=== PATIENT | male | born 1965 | race Caucasian/White ===

== ENCOUNTER 2019-12-09 05:47 | Emergency (ER) | payer BC, SELFPAY ==
[2019-12-09 06:00] VITALS: BP 154/79; PULSE 66; RESP 20; TEMP 36.6; O2SAT 97
[2019-12-09] MEDS: LIDOCAINE HCL 1% LOCAL INJ 20 ML VIAL INFILTRATE (06:11)
--- NOTE | 2019-12-09 06:23 | ED.WOUNDLAC ---
HPI - Wound/Laceration General Chief Complaint: Wound/Laceration Stated Complaint: FELL Source: patient Mode of arrival: ambulatory Limitations: no limitations History of Present Illness HPI narrative: this is a 54-year-old gentleman that presents with a laceration to the middle of the foot of his forehead that occurred earlier this morning when he hit his head on the bathtub causing a 3cm mildly gaping laceration to the middle of his forehead. There was some mild loss of blood with no current bleeding no headaches no blurry vision no loss of consciousness. Onset (ago): hour(s) Location: scalp Place: home Patient tetanus UTD: Yes Context: accidental Associated symptoms: none Related Data Home Medications Medication Instructions Recorded Confirmed amlodipine 10 mg PO DAILY 12/09/19 12/09/19 hydrocodone-acetaminophen 1 tablet PO PRN PRN 12/09/19 12/09/19 ketorolac 10 mg PO PRN PRN 12/09/19 12/09/19 losartan 50 mg PO DAILY 12/09/19 12/09/19 lovastatin 40 mg PO DAILY 12/09/19 12/09/19 montelukast 10 mg PO DAILY 12/09/19 12/09/19 testosterone cypionate 200 mg IM WEEKLY 12/09/19 12/09/19 Allergies Allergy/AdvReac Type Severity Reaction Status Date / Time No Known Drug Allergies Allergy Unknown Verified 08/11/11 08:32 Review of Systems Review of Systems: All systems reviewed & are unremarkable except as noted in HPI and below PMFSH Past Medical History Medical History HLD (hyperlipidemia) HTN (hypertension) Exam Const: General: no acute distress and alert Orientation/consciousness: patient oriented x3 HENMT: Head: normal to inspection, contusion and hematoma Eyes: Conjunctivae: conjunctivae normal Pupils: Equal, round and reactive pupils present Neck: Neck: no lymphadenopathy Chest: Chest palpation & inspection: normal inspection of the chest Resp: Effort & Inspection: normal respiratory effort Auscultation: clear to auscultation bilaterally Cardio: Rate: regular rate Rhythm: regular rhythm GI: GI Palp: Yes Soft to palpation Skin: Wounds: wounds noted ( 3Cm linear blood located in the middle of his forehead mildly gaping) Neuro: General: patient oriented x3, moves all extremities, no meningeal signs and no focal motor deficits Extrem: General: normal to inspection Course Vital Signs Vital signs: Vital Signs Temperature 36.6 C 12/09/19 06:00 Pulse Rate 66 12/09/19 06:00 Respiratory Rate 20 12/09/19 06:00 Blood Pressure 154/79 H 12/09/19 06:00 Pulse Oximetry 97 12/09/19 06:00 Temperature 36.6 C 12/09/19 06:00 Pulse Rate 66 12/09/19 06:00 Respiratory Rate 20 12/09/19 06:00 Blood Pressure 154/79 H 12/09/19 06:00 Pulse Oximetry 97 12/09/19 06:00 Procedures Laceration Laceration 1: Date: 12/09/19 Time: 06:27 Site: scalp Size (cm): 3 Description: linear Depth: simple, single layer Local Anesthetic: lidocaine 1% Amount of anesthesia used (mL): 5 Pre-repair: wound explored and irrigated ====== Skin Level ====== Skin layer closed with: nylon Size (cm): 5-0 Number of sutures: 6 ====== Subcutaneous Layer ====== ====== Muscle Layer ====== ====== Tendon Layer ====== Critical Care Time Critical Care Time Critical Care Time: No Discharge Plan Discharge Clinical Impression: Laceration Patient Disposition: Home, Self-Care Condition: Stable Instructions: Antibiotic Form, Laceration (ED), Care For Your Stitches (ED) Additional Instructions: advised patient to follow-up primary care physician in 1 week for suture removal. Prescriptions: No Action losartan 50 mg tablet 50 mg PO DAILY RF: 0 lovastatin 40 mg tablet 40 mg PO DAILY RF: 0 hydrocodone-acetaminophen 10-325 mg tablet 1 tablet PO PRN PRN (Reason: Pain) RF: 0 ketorolac 10 mg tablet 10 mg PO PRN PRN (
[2019-12-09 06:29] VITALS: BP 129/70; PULSE 70; RESP 20; TEMP 36.6; O2SAT 99
== END 2019-12-09 06:32 | disposition home or self-care (01) ==
PROVIDERS: Emergency Provider Emergency Medicine; PCP Internal Medicine
DX: S01.81XA Laceration without foreign body of other part of head, initial encounter (principal); W45.8XXA Other foreign body or object entering through skin, initial encounter
CPT/HCPCS: 12013 ×2; 12002; 99282

== ENCOUNTER 2019-12-15 16:10 | Outpatient (CLI) | payer BC, SELFPAY ==
--- NOTE | ~2019-12-15 | XR_ITS ---
EXAMINATION: XR lumbar spine 2-3V EXAM DATE: 12/15/2019 16:31 INDICATION: Low back pain into right leg, symptoms one month. TECHNIQUE: Lumber spine frontal, lateral, lateral L5-S1 projections for interpretation. There is no prior study for comparison. FINDINGS: There is mild lumbar disc disease. The vertebral bodies are aligned in the AP dimension. M ild lumbar levoscoliosis. There is mild to moderate lumbar facet arthropathy. Sacrum, sacroiliac join ts, sacral arcuate lines are intact. Paraspinal soft tissue is unremarkable. IMPRESSION: Mild to moderate lumbar facet arthropathy. Reviewed, dictated and finalized at location A.
== END 2019-12-15 16:11 | disposition home or self-care (01) ==
LOC: CHSIMG 16:11
PROVIDERS: PCP Internal Medicine; Visit Provider Internal Medicine
DX: M54.5 Low back pain (principal)
CPT/HCPCS: 72100

== ENCOUNTER 2020-01-10 07:38 | Outpatient (CLI) | payer BC, SELFPAY ==
--- NOTE | ~2020-01-10 | MR_ITS ---
EXAMINATION: MR lumbar spine wo [facility] EXAM DATE: 01/10/2020 08:21 INDICATION: Low back pain, right leg/ankle pain. Right toe numbness, symptoms 3 months. TECHNIQUE: Multi-sequential, multiplanar MR images of the lumbar spine were obtained without contrast . Sagittal T1, T2, T2 fat saturation images. Axial T2 weighted images. There is no prior study for comparison. FINDINGS: The conus medullaris terminates at the T12-L1 level and has normal signal intensity and mor phology. There is 3 mm retrolisthesis L5 on S1 with mild to moderate disc disease at this level. Mil d disc disease at L3-4 and L4-5. There are no suspicious marrow signal abnormalities. Paraspinal soft tissue is unremarkable. Level by level evaluation: T12-L1: Disc does not extend beyond the endplate margin. Facet arthropathy: None. Neural foraminal stenosis: No stenosis. Central canal stenosis: No stenosis. L1-L2: Disc does not extend beyond the endplate margin. Facet arthropathy: None. Neural foraminal stenosis: No stenosis. Central canal stenosis: No stenosis. L2-L3: Disc does not extend beyond the endplate margin. Facet arthropathy: Mild. Neural foraminal stenosis: No stenosis. Central canal stenosis: No stenosis. L3-L4: There is a mild diffuse disc bulge. Facet arthropathy: Mild to moderate. Neural foraminal stenosis: Mild right. Central canal stenosis: Mild. L4-L5: There is a mild to moderate diffuse disc bulge. Facet arthropathy: Moderate. Neural foraminal stenosis: Mild to moderate left, mild right. Central canal stenosis: Mild to moderate. L5-S1: There is a mild to moderate diffuse disc bulge. Facet arthropathy: Mild. Neural foraminal stenosis: Mild to moderate bilateral. Central canal stenosis: Mild. IMPRESSION: 1. [id number] lumbar spondylosis as detailed above. Reviewed, dictated and finalized at location A. IMPRESSION: 1. [id number] lumbar spondylosis as detailed above.
== END 2020-01-10 07:39 | disposition home or self-care (01) ==
LOC: ANHIMG 07:43
PROVIDERS: PCP Internal Medicine; Visit Provider Internal Medicine
DX: M47.816 Spondylosis without myelopathy or radiculopathy, lumbar region (principal)
CPT/HCPCS: 72148

== ENCOUNTER 2020-02-24 15:31 | Emergency (ER) | payer BC, SELFPAY ==
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
[2020-02-24 15:35] VITALS: BP 154/93; PULSE 80; RESP 14; TEMP 37; O2SAT 95
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
[2020-02-24 16:15] VITALS: RESP 15; O2SAT 95
== END 2020-02-24 16:24 | disposition home or self-care (01) ==
PROVIDERS: Emergency Provider Emergency Medicine; PCP Internal Medicine
DX: S62.112A Displaced fracture of triquetrum [cuneiform] bone, left wrist, initial encounter for closed fracture (principal); V29.9XXA Motorcycle rider (driver) (passenger) injured in unspecified traffic accident, initial encounter
CPT/HCPCS: 29125; 73110; 99282; 99284; L3908

== ENCOUNTER 2020-08-02 09:03 | Outpatient (CLI) | payer BC, SELFPAY ==
[2020-08-02 10:04] LABS: SARS-CoV-2 Ag Negative (Negative)
== END 2020-08-02 09:04 | disposition home or self-care (01) ==
LOC: CHSLAB 09:04
PROVIDERS: PCP Internal Medicine; Visit Provider Internal Medicine
DX: Z20.828 Contact with and (suspected) exposure to other viral communicable diseases (principal)
CPT/HCPCS: 87426

== ENCOUNTER 2020-08-04 10:57 | Outpatient (CLI) | payer BC, SELFPAY ==
[2020-08-04 11:51] LABS: SARS-CoV-2 Ag Positive (Negative)
== END 2020-08-04 10:58 | disposition home or self-care (01) ==
LOC: CHSLAB 10:58
PROVIDERS: PCP Internal Medicine; Visit Provider Internal Medicine
DX: U07.1 COVID-19 (principal)
CPT/HCPCS: 87426

== ENCOUNTER 2020-08-09 11:52 | Emergency (ER) | payer BC, SELFPAY ==
--- NOTE | ~2020-08-09 | XR_ITS ---
EXAMINATION: XR chest 1V portable EXAM DATE: 08/09/2020 12:32 INDICATION: sob, + covid, persistent fever. TECHNIQUE: Portable AP frontal chest x-ray was obtained. Comparison is made to prior examination from 09/22/2016. FINDINGS: The lungs are clear. There are no pleural effusions. Cardiac silhouette is prominent but magnified on this AP technique. There is no pneumothorax suspected. The bones and soft tissues are unremarkable. IMPRESSION: No acute cardiopulmonary findings. Reviewed, dictated and finalized at location B. 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
--- NOTE | 2020-08-09 12:14 | ED.FEVER ---
HPI - Fever General Chief Complaint: Shortness of Breath/Dyspnea Stated Complaint: Covid + Doctor sent over Time Seen by Provider: 08/09/20 11:54 Source: patient Mode of arrival: ambulatory Limitations: no limitations History of Present Illness HPI Narrative: 54-year-old man has history of hypertension and dyslipidemia comes in today complaining of shortness of breath and cough. Patient states that he was diagnosed with COVID on the . He states he has headache, poor appetite, shortness of breath and fatigue. He denies chest pain, vomiting, diarrhea, rash, weakness, lightheadedness, syncope and productive cough. He states his family is positive. MD elicited complaint: malaise Onset (ago): day(s) (4) Context: sick contacts Exacerbating factors: nothing Relieving factors: nothing Associated symptoms: headache, nasal congestion, cough and shortness of breath Treatments prior to arrival fever: none Related Data Home Medications Medication Instructions Recorded Confirmed amlodipine 10 mg PO DAILY 12/09/19 08/09/20 losartan 50 mg PO DAILY 12/09/19 08/09/20 lovastatin 40 mg PO DAILY 12/09/19 08/09/20 montelukast 10 mg PO DAILY 12/09/19 08/09/20 testosterone cypionate 200 mg IM WEEKLY 12/09/19 08/09/20 hydrochlorothiazide 12.5 mg PO DAILY 02/24/20 08/09/20 sildenafil 100 mg PO PRN PRN 02/24/20 08/09/20 Allergies Allergy/AdvReac Type Severity Reaction Status Date / Time No Known Drug Allergies Allergy Unknown Unknown Verified 08/09/20 12:34 Review of Systems Constitutional: Constitutional: Denies chills, Reports fatigue and Denies fever(s) Eyes: Eyes: Denies change in vision and Denies photophobia ENT: Denies dysphagia, Reports nasal congestion and Denies sore throat Cardiovascular: Cardiovascular: Denies chest pain Respiratory: Respiratory: Reports as per HPI, Reports cough, Reports dyspnea and Denies wheezing Gastrointestinal: Gastrointestinal: Denies abdominal pain, Denies diarrhea, Denies nausea and Denies vomiting Musculoskeletal: Musculoskeletal: Denies myalgias, Denies arthralgias and Denies joint swelling Integumentary/Breasts: Skin/Breast: Denies pruritus, Denies erythema and Denies rash Neurologic: Denies vertigo, Denies dizziness and Denies syncope Hematologic/Lymphatic: Hematologic/Lymphatic: Denies easy bleeding and Denies easy bruising Allergic/Immunologic: Allergic/Immunologic: Denies lip swelling, Denies throat swelling and Denies tongue swelling [facility] Past Medical History Medical History (Updated 08/09/20 @ 13:15 by Kike Rodrigez MD) HLD (hyperlipidemia) HTN (hypertension) Social History Social History Smoking status: Never smoker Gender identity (if verbalized by the patient): Male Exam Const: General: no acute distress and alert Nutritional Appearance: obese Orientation/consciousness: patient oriented x3 Limitations: no limitations HENMT: Head: normal to inspection Ears: external ears normal, TM's normal bilaterally and EAC's normal General nose exam: Normal nares present Face and sinus: normal facial exam Mouth: Yes moist mucous membranes Throat: posterior oropharynx normal Eyes: Conjunctivae: conjunctivae normal EOM: EOMs intact bilaterally Resp: Effort & Inspection: normal respiratory effort and not labored Auscultation: clear to auscultation bilaterally, no rales, no rhonchi, no wheezes and diminished lung sounds (mildy, diffusely) Cardio: Rate: regular rate Rhythm: regular rhythm Peripheral pulses: radial pulses present Skin: General skin exam: normal color, no jaundice and no pallor Rashes: no rashes Neuro: General: No patient oriented x3, No moves all extremities, No no meningeal signs, No no focal motor deficits and No CN's II-XI intact bilaterally Speech: No normal speech Gait exam (Neuro): gait abnormal Extrem: General: normal to inspection and no clubbing, cyanosis or edema Psych: Appea
[2020-08-09 12:28] VITALS: BP 151/86; PULSE 103; RESP 20; TEMP 38.6; O2SAT 96
[2020-08-09 12:53] LABS: Influenza Control Valid (Valid)
[2020-08-09 13:51] VITALS: BP 123/75; PULSE 96; RESP 20; O2SAT 100
== END 2020-08-09 13:53 | disposition home or self-care (01) ==
PROVIDERS: Emergency Provider Emergency Medicine; PCP Internal Medicine
DX: U07.1 COVID-19 (principal)
CPT/HCPCS: 71045; 87804; 99283

== ENCOUNTER 2020-08-10 09:33 | Outpatient (CLI) | payer BC, SELFPAY ==
[2020-08-10 09:57] LABS: Basophils Absolute Auto 0.02 K/mm3 (0.00-0.10); Basophils Percent Auto 0.4 % (0.0-1.0); Eosinophils Absolute Auto 0.01 K/mm3 (0.02-0.50); Eosinophils Percent Auto 0.2 % (1.0-6.0); Hematocrit 53.3 % (40.0-54.0); Hemoglobin 17.1 g/dL (14.0-18.0); Immature Granulocyte Absolute 0.04 K/mm3 (0.00-0.00); Immature Granulocyte Percent A 0.7 % (0.0-0.0); Lymphocytes Absolute Auto 0.68 K/mm3 (1.10-4.50); Lymphocytes Percent Auto 12.1 % (18.0-42.0); Mean Corpuscular HGB Conc 32.1 g/dL (32.0-36.0); Mean Corpuscular Hemoglobin 27.5 pg (27.0-31.0); Mean Corpuscular Volume 85.8 fL (78.0-102.0); Mean Platelet Volume 9.7 fl (8.7-11.0); Monocytes Absolute Auto 0.74 K/mm3 (0.10-0.90); Monocytes Percent Auto 13.2 % (2.0-11.0); Neutrophils Absolute Auto 4.1 K/mm3 (1.7-7.2); Neutrophils Percent Auto 73.4 % (50.0-70.0); Platelet Count Result 227 K/mm3 (150-420); Red Blood Count 6.21 M/mm3 (4.70-6.10); Red Cell Distribution Width 14.3 % (11.6-14.4); White Blood Count 5.6 K/mm3 (4.8-10.8)
[2020-08-10 10:06] LABS: Anion Gap 9 mmol/L (8-16); Blood Urea Nitrogen 17 mg/dL (7-18); Calcium 8.8 mg/dL (8.5-10.1); Carbon Dioxide 29 mmol/L (21-32); Chloride 98 mmol/L (98-108); Estimated Glomerular Filt Rate 52; Glucose 115 mg/dL (70-99); Osmolality Calculated 284 mOsm/kg (285-295); Potassium 3.5 mmol/L (3.5-5.1); Sodium 136 mmol/L (136-145)
[2020-08-10 10:08] LABS: D Dimer 0.31 mg/L (0.19-0.50)
== END 2020-08-10 09:34 | disposition home or self-care (01) ==
LOC: CHSLAB 09:35
PROVIDERS: PCP Internal Medicine; Visit Provider Internal Medicine
DX: U07.1 COVID-19 (principal); R06.02 Shortness of breath
CPT/HCPCS: 36415; 80048; 85025; 85380

== ENCOUNTER 2020-09-21 15:32 | Outpatient (CLI) | payer BC, SELFPAY ==
[2020-09-21 16:40] LABS: Hematocrit 49.2 % (42.0-52.0); Hemoglobin 16.5 g/dL (14.0-18.0)
[2020-09-21 17:22] LABS: Prostate Specific Antigen 1.6 ng/mL (< OR = 4.0)
[2020-09-25 10:17] LABS: Testosterone Total 873 ng/dL (250-1100)
[2020-09-27 00:21] LABS: Estradiol, Ultrasensitive 90 pg/mL (< OR = 29)
== END 2020-09-21 15:33 | disposition home or self-care (01) ==
PROVIDERS: PCP Internal Medicine; Visit Provider Urology
DX: E29.1 Testicular hypofunction (principal); D75.1 Secondary polycythemia; Z12.5 Encounter for screening for malignant neoplasm of prostate
CPT/HCPCS: 36415; 82670; 84153; 84403; 85014; 85018; G0103

== ENCOUNTER 2020-10-13 18:02 | Outpatient (CLI) | payer BC, SELFPAY ==
--- NOTE | ~2020-10-13 | XR_ITS ---
EXAMINATION: XR chest 2V DATE: 10/13/2020 18:17 INDICATION: Cough. TECHNIQUE: Frontal and lateral views of the chest were obtained. COMPARISON: Chest single view 08/09/2020 FINDINGS: A calcified right lung nodule is consistent with old granulomatous disease. There are mild airspace opacities in right lower lung zone. No pleural effusion or pneumothorax. The heart size is n ormal. IMPRESSION: 1. Mild airspace opacities in right lower lung zone, consistent with atelectasis versus pneumonia. Reviewed, dictated and finalized at location A. 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 Mild airspace opacities in right lower lung zone, consistent with atelectasi s versus pneumonia.
== END 2020-10-13 18:03 | disposition home or self-care (01) ==
LOC: CHSIMG 18:03
PROVIDERS: PCP Internal Medicine; Visit Provider Internal Medicine
DX: R05 Cough (principal); Z86.16 Personal history of COVID-19
CPT/HCPCS: 71046

== ENCOUNTER 2020-12-07 16:02 | Outpatient (CLI) | payer BC, SELFPAY ==
--- NOTE | ~2020-12-07 | XR_ITS ---
EXAMINATION: XR chest 2V 12/07/2020 16:27 INDICATION: Chronic cough PROCEDURE: 2 view chest COMPARISON: Comparison to multiple prior studies sequentially, with oldest reviewed study dated 09/15. FINDINGS: The lungs are clear. The cardiomediastinal silhouette is within normal limits. There are no pleural effusions. There is no pneumothorax suspected. Calcified granuloma right upper lobe. IMPRESSION: 1: NO ACUTE CARDIOPULMONARY DISEASE. Reviewed, dictated and finalized at location A.
[2020-12-07 16:58] LABS: Alanine Aminotransferase 67 U/L (16-63); Alkaline Phosphatase 71 U/L (46-116); Anion Gap 10 mmol/L (8-16); Aspartate Amino Transferase 30 U/L (15-37); Bilirubin,Total 0.9 mg/dL (0.00-1.00); Blood Urea Nitrogen 11 mg/dL (7-18); Calcium 9.7 mg/dL (8.5-10.1); Carbon Dioxide 30 mmol/L (21-32); Chloride 99 mmol/L (98-108); Estimated Glomerular Filt Rate > 60; Glucose 105 mg/dL (70-99); Osmolality Calculated 287 mOsm/kg (285-295); Potassium 3.7 mmol/L (3.5-5.1); Sodium 139 mmol/L (136-145); Total Protein 6.8 g/dL (6.4-8.2)
== END 2020-12-07 16:03 | disposition home or self-care (01) ==
LOC: CHSLAB 16:03
PROVIDERS: PCP Internal Medicine; Visit Provider Internal Medicine
DX: R05 Cough (principal); R94.5 Abnormal results of liver function studies
CPT/HCPCS: 36415; 71046; 80053

== ENCOUNTER 2021-02-04 11:04 | Outpatient (CLI) | payer BC, SELFPAY ==
[2021-02-04 11:39] LABS: Hematocrit 52.3 % (42.0-52.0); Hemoglobin 17.2 g/dL (14.0-18.0)
[2021-02-08 14:29] LABS: Testosterone Total 1056 ng/dL (250-1100)
[2021-02-09 21:13] LABS: Estradiol, Ultrasensitive 55 pg/mL (< OR = 29)
== END 2021-02-04 11:05 | disposition home or self-care (01) ==
PROVIDERS: PCP Internal Medicine; Visit Provider Urology
DX: E29.1 Testicular hypofunction (principal)
CPT/HCPCS: 36415; 82670; 84403; 85014; 85018

== ENCOUNTER 2021-04-22 08:37 | Outpatient (CLI) | payer BC, SELFPAY ==
[2021-04-22 08:53] LABS: Basophils Absolute Auto 0.08 K/mm3 (0.00-0.10); Eosinophils Absolute Auto 0.22 K/mm3 (0.02-0.50); Eosinophils Percent Auto 2.8 % (1.0-6.0); Hematocrit 56.6 % (40.0-54.0); Hemoglobin 18.4 g/dL (14.0-18.0); Immature Granulocyte Absolute 0.09 K/mm3 (0.00-0.00); Immature Granulocyte Percent A 1.2 % (0.0-0.0); Lymphocytes Absolute Auto 2.17 K/mm3 (1.10-4.50); Lymphocytes Percent Auto 28.1 % (18.0-42.0); Mean Corpuscular HGB Conc 32.5 g/dL (32.0-36.0); Mean Corpuscular Hemoglobin 28.2 pg (27.0-31.0); Mean Corpuscular Volume 86.8 fL (78.0-102.0); Mean Platelet Volume 9.9 fl (8.7-11.0); Monocytes Absolute Auto 0.59 K/mm3 (0.10-0.90); Monocytes Percent Auto 7.6 % (2.0-11.0); Neutrophils Absolute Auto 4.6 K/mm3 (1.7-7.2); Neutrophils Percent Auto 59.3 % (50.0-70.0); Platelet Count Result 230 K/mm3 (150-420); Red Blood Count 6.52 M/mm3 (4.70-6.10); Red Cell Distribution Width 15.1 % (11.6-14.4); White Blood Count 7.7 K/mm3 (4.8-10.8)
[2021-04-22 09:01] LABS: Hemoglobin A1C 5.6 % (<5.7)
[2021-04-22 10:25] LABS: Alanine Aminotransferase 49 U/L (16-63); Albumin Level 3.8 g/dL (3.4-5.0); Alkaline Phosphatase 75 U/L (46-116); Anion Gap 8 mmol/L (8-16); Aspartate Amino Transferase 24 U/L (15-37); Bilirubin,Total 0.7 mg/dL (0.00-1.00); Blood Urea Nitrogen 14 mg/dL (7-18); Calcium 9.4 mg/dL (8.5-10.1); Carbon Dioxide 29 mmol/L (21-32); Chloride 105 mmol/L (98-108); Cholesterol 244 mg/dL (0-200); Creatine Kinase 93 U/L (39-308); Estimated Glomerular Filt Rate > 60; Glucose 104 mg/dL (70-99); HDL Direct 39 mg/dL (40-60); LDL Cholesterol Calculated 176 mg/dL (<130); Osmolality Calculated 294 mOsm/kg (285-295); Potassium 4.2 mmol/L (3.5-5.1); Sodium 142 mmol/L (136-145); Total Protein 6.6 g/dL (6.4-8.2); Triglycerides 144 mg/dL (0-150)
== END 2021-04-22 08:38 | disposition home or self-care (01) ==
LOC: CHSLAB 08:39
PROVIDERS: PCP Internal Medicine; Visit Provider Internal Medicine
DX: E78.5 Hyperlipidemia, unspecified (principal); R73.01 Impaired fasting glucose; I10 Essential (primary) hypertension; N39.0 Urinary tract infection, site not specified
CPT/HCPCS: 36415; 80053; 80061; 82550; 83036; 85025

== ENCOUNTER 2021-05-19 16:21 | Outpatient (CLI) | payer BC, SELFPAY ==
[2021-05-19 17:32] LABS: Ferritin 84 ng/mL (26-388); Iron 70 ug/dL (65-175)
[2021-05-22 23:43] LABS: Erythropoietin (EPO) 19.2 mIU/mL (2.6-18.5)
[2021-05-25 14:46] LABS: CALR Exon 9 Mutation Not Detected (Not Detected); CSF3R Exon 14/17 Mutation Not Detected (Not Detected); JAK2 Exon 12 Mutation Not Detected (Not Detected); JAK2 V617F Mutation Not Detected (Not Detected); MPL Exon 10 Mutation Not Detected (Not Detected); Specimen Source Blood
== END 2021-05-19 16:22 | disposition home or self-care (01) ==
LOC: CHSLAB 16:23
PROVIDERS: PCP Internal Medicine; Visit Provider Internal Medicine
DX: D75.1 Secondary polycythemia (principal)
CPT/HCPCS: 36415; 81219; 81270; 81402; 81403; 81479; 82668; 82728; 83540

== ENCOUNTER 2021-05-24 13:39 | Outpatient (CLI) | payer BC, SELFPAY ==
--- NOTE | ~2021-05-24 | US_ITS ---
EXAMINATION: US retroperitoneal comp EXAM DATE: 05/24/2021 14:05 INDICATION: Polycythemia TECHNIQUE: Multiple grayscale and Doppler images of the kidneys were obtained (by a technologist who performed the scan) and subsequently reviewed. There is no prior study for comparison. FINDINGS: Right kidney: There is normal contour and echogenicity. It measures 12.7 x 6.0 x 6.0 centimeters. T here are no focal renal lesions identified. There is no hydronephrosis. Left kidney: There is normal contour and echogenicity. It measures 10.9 x 6.4 x 5.9 centimeters. The re is a partially exophytic region which is echogenic centrally, renal cell cancer versus dromedary h ump. This measures about 2 cm. There is no hydronephrosis. Bladder unremarkable. IMPRESSION: Indeterminate left renal region, mass versus lobulation. A CT or MRI with contrast is rec ommended. Reviewed, dictated and finalized at location A. IMPRESSION: Indeterminate left renal region, mass versus lobulation. A CT or MR I with contrast is recommended.
== END 2021-05-24 13:40 | disposition home or self-care (01) ==
LOC: CHSIMG 13:40
PROVIDERS: PCP Internal Medicine; Visit Provider Internal Medicine
DX: D75.1 Secondary polycythemia (principal)
CPT/HCPCS: 76770

== ENCOUNTER 2021-05-27 09:08 | Outpatient (CLI) | payer BC, SELFPAY ==
--- NOTE | ~2021-05-27 | CT_ITS ---
EXAMINATION: CT abdomen wo/w con DATE: 05/27/2021 10:46 INDICATION: Left kidney mass. TECHNIQUE: Computed tomography (CT) of the abdomen was performed without and with 100 mL Omnipaque 35 0 intravenous contrast. Automated exposure control and iterative reconstruction technique were employ ed. The dose-length product was 1752.48 mGy-cm. COMPARISON: CT abdomen and pelvis 07/08/2011, ultrasound kidneys 05/24/2021 FINDINGS: The visualized portions of the lung bases demonstrate mild atelectasis. No pleural effusion . The heart size is normal. No pericardial effusion. There is a 6 mm cyst in the liver. The gallbladd er, spleen, pancreas, adrenal glands, and right kidney are normal. There are cysts in left kidney carlos suring up to 2.3 cm. There are no dilated loops of bowel. There is an umbilical hernia containing fat . There are no pathologically enlarged lymph nodes. There is no free intraperitoneal fluid. There is a small sliding hiatal hernia. There is mild thoracolumbar spondylosis. IMPRESSION: 1. Benign cysts in left kidney. Reviewed, dictated and finalized at location A.
[2021-05-27 10:32] LABS: Estimated Glomerular Filt Rate > 60
== END 2021-05-27 09:09 | disposition home or self-care (01) ==
LOC: CHSIMG 09:10
PROVIDERS: PCP Internal Medicine; Visit Provider Internal Medicine
DX: N28.89 Other specified disorders of kidney and ureter (principal)
CPT/HCPCS: 74170; Q9967

== ENCOUNTER 2022-05-30 15:28 | Outpatient (CLI) | payer BC, SELFPAY ==
[2022-05-30 16:10] LABS: Hemoglobin 19.6 g/dL (14.0-18.0)
[2022-05-30 16:53] LABS: Prostate Specific Antigen 1.6 ng/mL (< OR = 4.0)
[2022-06-02 11:25] LABS: Testosterone Total 1126 ng/dL (250-1100)
[2022-06-07 22:31] LABS: Estradiol, Ultrasensitive 160 pg/mL (< OR = 29)
== END 2022-05-30 15:29 | disposition home or self-care (01) ==
LOC: ANHLAB 15:40
PROVIDERS: PCP Internal Medicine
DX: Z12.5 Encounter for screening for malignant neoplasm of prostate (principal); E29.1 Testicular hypofunction
CPT/HCPCS: 36415; 82670; 84153; 84403; 85014; 85018; G0103

== ENCOUNTER 2023-12-19 11:00 | Outpatient (CLI) | payer BC, SELFPAY ==
--- NOTE | ~2023-12-19 | XR_ITS ---
XR tibia fibula RT 2V DATE: 12/19/2023 14:21 INDICATION: Lateral right leg pain for 2 to 3 months. No known injury. TECHNIQUE: AP and lateral views COMPARISON: None FINDINGS: There is mild focal benign chronic periosteal reaction along the posteromedial aspect of th e proximal tibial shaft. No fracture or dislocation or suspicious periosteal reaction or bone destruc tion is noted. IMPRESSION: No significant abnormality Reviewed, dictated and finalized at location A. IMPRESSION: No significant abnormality
[2023-12-19 11:52] LABS: Alanine Aminotransferase 67 U/L (16-63); Albumin Level 4.1 g/dL (3.4-5.0); Alkaline Phosphatase 116 U/L (46-116); Anion Gap 10 mmol/L (4-12); Aspartate Amino Transferase 33 U/L (15-37); Bilirubin,Total 0.7 mg/dL (0.00-1.00); Blood Urea Nitrogen 17 mg/dL (7-18); Calcium 9.7 mg/dL (8.5-10.1); Carbon Dioxide 29 mmol/L (21-32); Chloride 103 mmol/L (98-108); Cholesterol 193 mg/dL (0-200); Estimated Glomerular Filt Rate 60; Glucose 91 mg/dL (70-99); HDL Direct 53 mg/dL (40-60); LDL Cholesterol Calculated 117 mg/dL (<130); Osmolality Calculated 295 mOsm/kg (285-295); Potassium 4.1 mmol/L (3.5-5.1); Sodium 142 mmol/L (136-145); Total Protein 7.1 g/dL (6.4-8.2); Triglycerides 115 mg/dL (0-150)
== END 2023-12-19 11:01 | disposition home or self-care (01) ==
PROVIDERS: PCP Internal Medicine; Visit Provider Internal Medicine
DX: E78.2 Mixed hyperlipidemia (principal); M79.604 Pain in right leg
CPT/HCPCS: 36415; 73590; 80053; 80061

== ENCOUNTER 2023-12-29 07:31 | Outpatient (CLI) | payer BC, SELFPAY ==
--- NOTE | ~2023-12-29 | MR_ITS ---
EXAMINATION: MR lower leg RT wo/w con DATE: 12/29/2023 08:41 INDICATION: Right lower leg pain. TECHNIQUE: Magnetic resonance imaging (MRI) of the right tibia and fibula was performed without and w ith 20 mL MultiHance intravenous contrast. COMPARISON: Right tibia and fibula radiographs 12/19/2023 FINDINGS: Bone alignment is normal. No fracture. There is a skin marker lateral to the distal fibula. The musculature is normal. There is no abnormal mass. There is subcutaneous edema anteromedial to th e tibia. IMPRESSION: 1. No specific etiology for the patient's symptoms. Reviewed, dictated and finalized at location E.
== END 2023-12-29 07:32 | disposition home or self-care (01) ==
PROVIDERS: PCP Internal Medicine; Visit Provider Internal Medicine
DX: M79.661 Pain in right lower leg (principal)
CPT/HCPCS: 73720; A9577

== ENCOUNTER 2024-07-14 08:59 | Outpatient (CLI) | payer BC, SELFPAY ==
[2024-07-14 09:23] LABS: Basophils Absolute Auto 0.07 K/mm3 (0.00-0.10); Basophils Percent Auto 0.9 % (0.0-1.0); Eosinophils Absolute Auto 0.21 K/mm3 (0.02-0.50); Eosinophils Percent Auto 2.7 % (1.0-6.0); Hematocrit 43.8 % (40.0-54.0); Hemoglobin 15.3 g/dL (14.0-18.0); Immature Granulocyte Absolute 0.04 K/mm3 (0.00-0.00); Immature Granulocyte Percent A 0.5 % (0.0-0.0); Lymphocytes Absolute Auto 2.39 K/mm3 (1.10-4.50); Lymphocytes Percent Auto 30.4 % (18.0-42.0); Mean Corpuscular HGB Conc 34.9 g/dL (32-36); Mean Corpuscular Hemoglobin 30.1 pg (27.0-31.0); Mean Corpuscular Volume 86.2 fL (78.0-102.0); Mean Platelet Volume 9.5 fl (8.7-11.0); Monocytes Absolute Auto 0.51 K/mm3 (0.10-0.90); Monocytes Percent Auto 6.5 % (2.0-11.0); Neutrophils Absolute Auto 4.65 K/mm3 (1.70-7.20); Platelet Count Result 269 K/mm3 (150-420); Red Blood Count 5.08 M/mm3 (4.70-6.10); Red Cell Distribution Width 13.8 % (11.6-14.4); White Blood Count 7.9 K/mm3 (4.8-10.8)
[2024-07-14 09:36] LABS: Hemoglobin A1C 5.5 % (<5.7)
[2024-07-14 10:52] LABS: Alanine Aminotransferase 56 U/L (16-63); Albumin Level 3.7 g/dL (3.4-5.0); Alkaline Phosphatase 106 U/L (46-116); Anion Gap 9 mmol/L (4-12); Aspartate Amino Transferase 20 U/L (15-37); Bilirubin,Total 0.8 mg/dL (0.00-1.00); Blood Urea Nitrogen 17 mg/dL (7-18); Carbon Dioxide 28 mmol/L (21-32); Chloride 103 mmol/L (98-108); Cholesterol 192 mg/dL (0-200); Creatine Kinase 101 U/L (39-308); Estimated Glomerular Filt Rate > 60; Free T4 Free Thyroxine 1.12 ng/dL (0.76-1.46); Glucose 90 mg/dL (70-99); HDL Direct 50 mg/dL (40-60); LDL Cholesterol Calculated 121 mg/dL (<130); Osmolality Calculated 291 mOsm/kg (285-295); Potassium 3.7 mmol/L (3.5-5.1); Prostate Specific Antigen 1.1 ng/mL (< OR = 4.0); Sodium 140 mmol/L (136-145); Thyroid Stimulating Hormone 1.53 uIU/mL (0.36-3.74); Total Protein 6.3 g/dL (6.4-8.2); Triglycerides 107 mg/dL (0-150)
[2024-07-19 13:13] LABS: Testosterone Free 34.5 pg/mL (35.0-155.0); Testosterone Total 247 ng/dL (250-1100)
== END 2024-07-14 09:00 | disposition home or self-care (01) ==
LOC: CHSLAB 09:03
PROVIDERS: PCP Internal Medicine; Visit Provider Internal Medicine
DX: I10 Essential (primary) hypertension (principal); R73.01 Impaired fasting glucose; E78.2 Mixed hyperlipidemia; R74.8 Abnormal levels of other serum enzymes
CPT/HCPCS: 36415; 80053; 80061; 82550; 83036; 84153; 84402; 84403; 84439; 84443; 85025; G0103

== ENCOUNTER 2025-05-04 07:22 | Outpatient (CLI) | payer BC, SELFPAY ==
[2025-05-04 07:48] LABS: Hematocrit 49.6 % (40.0-54.0); Hemoglobin 16.0 g/dL (14.0-18.0); Mean Corpuscular HGB Conc 32.3 g/dL (32-36); Mean Corpuscular Hemoglobin 28.6 pg (27.0-31.0); Mean Corpuscular Volume 88.7 fL (78.0-102.0); Platelet Count Result 257 K/mm3 (150-420); Red Blood Count 5.59 M/mm3 (4.70-6.10); White Blood Count 7.9 K/mm3 (4.8-10.8)
[2025-05-04 07:50] LABS: Add Urine Microscopic? YES; Appearance Urine Clear (Clear); Glucose Urine UA Negative (Negative); Leukocyte Esterase Ur Negative LEU/UL (Negative); Nitrate Urine Negative (Negative); Specific Grav Ur 1.020 (1.010-1.020)
[2025-05-04 08:11] LABS: Hemoglobin A1C 5.9 % (<5.7)
[2025-05-04 09:39] LABS: Alanine Aminotransferase 24 U/L (6-50); Albumin Level 4.2 g/dL (3.5-5.1); Alkaline Phosphatase 75 U/L (38-126); Anion Gap 10 mmol/L (4-12); Aspartate Amino Transferase 27 U/L (17-59); Bilirubin,Total 0.5 mg/dL (0.2-1.3); Blood Urea Nitrogen 23 mg/dL (9-20); Calcium 9.5 mg/dL (8.4-10.2); Carbon Dioxide 22 mmol/L (22-30); Chloride 111 mmol/L (98-107); Creatine Kinase 54 U/L (55-170); Estimated Glomerular Filt Rate > 60; Glucose 113 mg/dL (65-110); Osmolality Calculated 300 mOsm/kg (285-295); Potassium 4.8 mmol/L (3.4-5.0); Sodium 143 mmol/L (137-145); Total Protein 6.7 g/dL (6.3-8.2)
[2025-05-04 13:45] LABS: Cholesterol 251 mg/dL (0-200); HDL Direct 44 mg/dL; Triglycerides 199 mg/dL (<150)
== END 2025-05-04 07:23 | disposition home or self-care (01) ==
PROVIDERS: PCP Internal Medicine; Visit Provider Internal Medicine
DX: R73.01 Impaired fasting glucose (principal); N39.0 Urinary tract infection, site not specified; E78.2 Mixed hyperlipidemia; E29.1 Testicular hypofunction
CPT/HCPCS: 36415; 80053; 80061; 81001; 82550; 83036; 85027